=== PATIENT | male | born 2000 | race Caucasian/White ===

== ENCOUNTER 2023-06-01 09:06 | Emergency (ER) | payer OTHER, SELFPAY ==
[2023-06-01 09:12] VITALS: BP 132/72; PULSE 63; RESP 18; TEMP 36.1; O2SAT 97; BMI 39.9
--- NOTE | 2023-06-01 10:29 | ED_ITS ---
HPI - Eye Problem General Chief complaint: Eye Problems Stated complaint: R eye discharge, blurry vision Time Seen by Provider: 06/01/23 10:29 Source: patient and RN notes reviewed Mode of arrival: ambulatory Limitations: no limitations History of Present Illness HPI Narrative: This is a 22-year-old male, with a history of hypertension, who presents emergency department with complaints of right eye redness, drainage since this morning. Patient states that he woke up and noticed crusting to his eye, and feels as though there is something in his right eye. He endorses drainage from his eye. He denies getting anything into his right eye. No recent eye trauma. He does not wear contact lenses. He does report that he had metal in his right eye many years ago which was removed by an eye physician, no problems with his eyes since. He denies any fevers, chills, coughing, chest pain, shortness of breath, abdominal pain, nausea, vomiting or diarrhea. No other complaints or concerns at this time. MD chief complaint: eye redness Location: right eye Eye Symptoms: redness, foreign body sensation and discharge Mechanism: none If Pain, Quality: burning Related Data Previous Rx's ?Medication ?Instructions ?Recorded erythromycin 5 mg/gram (0.5 %) eye 0.5 inch ophthalmic (eye) QID #3.5 06/01/23 ointment grams Allergies Allergy/AdvReac Type Severity Reaction Status Date / Time No Known Allergies Allergy Verified 06/01/23 09:14 Review of Systems Review of Systems: Yes all other systems are reviewed and are negative Constitutional: Constitutional: Reports as per [facility] Past Medical History Attestation statement: The following information was validated with the patient. Social History Social History Advance Directives: No Advance Directives Information Provided: No Physical Exam Vital Signs: Vital Signs: Last Vital Signs Temp 0 F L 06/01/23 11:06 Pulse 0 L 06/01/23 11:06 Resp 0 L 06/01/23 11:06 BP 00/00 L 06/01/23 11:06 Pulse Ox 96 06/01/23 10:33 O2 Del Method Room Air 06/01/23 10:33 BMI result Body Mass Index 39.9 Const: General: cooperative, comfortable and no acute distress Orientation/consciousness: patient oriented x3 Limitations: no limitations HEENT: Head: Yes normal to inspection, Yes normocephalic and Yes atraumatic Ears: hearing grossly normal bilaterally General nose exam: Normal external nose present Face and sinus: Yes normal facial exam Mouth: Normal oral and palatal mucosa present, oropharynx normal and moist mucous membranes Throat: Yes posterior oropharynx normal Eyes: Other: Right eye conjunctiva is injected. Fluorescein stain achieved, no fluorescein uptake noted. No foreign body, ulcerations. Negative Nupur sign. General: appearance normal, both eyes and all related structures Eyelids: Yes eyelids normal Sclerae: sclerae normal Pupils: Equal, round and reactive pupils present EOM: EOMs intact bilaterally Neck: Neck: Yes normal visual inspection, Yes full ROM and Yes no lymphadenopathy Lymphatic: no lymphadenopathy noted Chest: Chest palpation & inspection: normal inspection of the chest Resp: Effort & Inspection: normal respiratory effort and able to speak in complete sentences Auscultation: clear to auscultation bilaterally, no crackles, no rales, no rhonchi and no wheezes Cardio: Rate: regular rate Rhythm: regular rhythm Heart sounds: S1 normal heart sound present and S2 normal heart sound present GI: Inspection: Yes normal to inspection Skin: General skin exam: no rashes or lesions noted Trauma: no lacerations or abrasions Wounds: no wounds Neuro: General: patient oriented x3 and moves all extremities Cranial nerves: Yes Equal, round and reactive pupils present Extrem: General: Yes normal to inspection Right upper extremity: normal to inspection Left upper extremity: normal to inspection Right lower extremity: normal to inspection Left lower extremity: normal to inspection Medications Administered Discontinued Medications Generic Name Dose Route Start Last Admin Trade Name Thania PRN Reason Stop Dose Admin Fluorescein Sodium 1 strip 06/01/23 10:36 06/01/23 11:06 Fluorescein Sodium Strip EYE-RIGHT 06/01/23 10:37 1 strip ONCE ONE Administration Tetracaine HCl 1 drop 06/01/23 10:36 06/01/23 11:06 Tetracaine Hcl/Pf 0.5% Oph Lesley 4 Ml Drops EYE-RIGHT 06/01/23 10:37 1 drop ONCE ONE Administration Medical Decision Making Medical Decision Making MDM Narrative: This is a 22-year-old male, with a history of hypertension, emergency department complaints of right eye redness, foreign body sensation, and drainage since this morning. On arrival vital signs within normal limits. He is nontoxic- appearing. He expresses intermittent changes in vision only with drainage. Denies any eye pain. PERRFERDINAND, EOMI. Fluorescein stain was performed, no fluorescein uptake suggest abrasion, foreign body, ulcerations. Negative Nupur sign. Symptoms consistent with viral/bacterial conjunctivitis. Will treat with erythromycin ointment. Patient given return precautions. He understands and agrees with plan. Visual acuity intact. Patient stable for discharge Differential Diagnosis Differential Diagnoses: The differential diagnosis associated with the presentation includes Conjunctivitis, iritis, foreign body, iritis, less likely periorbital/orbital cellulitis Admission/Observation Consideration of admission/observation: Escalation of care including admission/observation considered Escalation of care including admission/observation considered however given workup today not warranted at this time. Discharge Plan Discharge Clinical Impression: Conjunctivitis Patient Disposition: Home, Self-Care Instructions: Conjunctivitis (ED) Additional Instructions: You were seen in the emergency department due to right eye redness, drainage. Your eye exam today was normal however does appear to be irritated. He may have a bacterial or viral conjunctivitis. Please use antibiotic ointment 4 times a day for the next 7 days. Keep your hands clean as this may be contagious. If any new or worsening symptoms occur including but not limited to severe eye pain, severe changes in vision, please return. You may also follow-up with the release of information specialist, Dr. Bradley, as needed. Prescriptions: New erythromycin 5 mg/gram (0.5 %) ointment 0.5 inch ophthalmic (eye) QID Qty: 3.5 0RF Referrals: Bridger Bradley [Physician] - Stand Alone Forms: Work/School Release Interventions: ED Discharge Assessment Last Done: 06/01/23 11:06 Discharge Date/Time: 06/01/23 11:08 Print Language: Botswanan
[2023-06-01 10:33] VITALS: BP 134/69; PULSE 68; RESP 20; TEMP 36.6; O2SAT 96
[2023-06-01 11:06] VITALS: BP 00/00; PULSE 0; RESP 0; TEMP -17.7; TEMP 0
[2023-06-01] MEDS: Fluorescein Sodium STRIP 1 STRIP EYE-RIGHT (11:06)
[2023-06-01] MEDS: Tetracaine HCl/PF 0.5% Oph Sol 4 ML DROPS 1 DROP EYE-RIGHT (11:06)
== END 2023-06-01 11:08 | disposition home or self-care (01) ==
LOC: HO.ED 11:06
PROVIDERS: Emergency Provider Emergency Medicine
DX: H10.9 Unspecified conjunctivitis (principal); H53.8 Other visual disturbances
CPT/HCPCS: 99283

== ENCOUNTER 2024-05-03 08:16 | Emergency (ER) | payer OTHER, SELFPAY ==
--- NOTE | ~2024-05-03 | XR_ITS ---
EXAMINATION: XR CHEST CLINICAL INFORMATION: Productive cough COMPARISON: None available. TECHNIQUE: 2 views of the chest were obtained. FINDINGS: No consolidation, pleural effusion or pneumothorax. No hyperinflation. Cardiomediastinal silhouette is normal. Osseous structures are intact. XR/XR chest 2V IMPRESSION: No acute airspace disease. Normal chest x-ray. Electronically signed by: Ishmael Garrett MD 05/03/2024 08:52 AM EDT
[2024-05-03 08:25] VITALS: BP 133/77; PULSE 76; RESP 16; TEMP 36.7; O2SAT 97; BMI 33.9
--- NOTE | 2024-05-03 08:37 | ED_ITS ---
HPI - General Adult General Chief complaint: Upper Respiratory Symptoms Stated complaint: congestion multi issue chest pain Time Seen by Provider: 05/03/24 08:37 Source: patient Mode of arrival: ambulatory Limitations: no limitations History of Present Illness ED Provider: Garima Pineda PA-C HPI narrative: Patient is a 23 year old assigned male at with a history of yearly bronchitis presenting to the emergency department today with cough and congestion. Patient states that he woke up this morning with a cough and nasal congestion. Patient denies any dizziness, lightheadedness, abdominal pain, nausea, vomiting, fever, chills, blurry vision, double vision, loss of vision, chest pain, difficulty breathing, shortness of breath, back pain, night sweats, pain with urination, increased urinary frequency, increased urinary urgency, blood in his urine or stool, syncope or a near syncopal episode, recent trauma or falls, bowel incontinence, bladder incontinence, or any other complaints at this time. Relieving factors: none Exacerbating factors: none Associated symptoms: cough Treatments prior to arrival: none Related Data Previous Rx's ?Medication ?Instructions ?Recorded erythromycin 5 mg/gram (0.5 %) eye 0.5 inch ophthalmic (eye) QID #3.5 06/01/23 ointment grams guaifenesin 600 mg tablet, 600 mg PO BID #7 tabs 05/03/24 extended release 12 hr (Mucinex) Allergies Allergy/AdvReac Type Severity Reaction Status Date / Time No Known Allergies Allergy Verified 05/03/24 08:30 Review of Systems Constitutional: Constitutional: Reports no additional constitutional complaints, Denies chills, Denies fever(s) and Denies night sweats Eyes: Eyes: Reports no additional eye complaints, Denies blurry vision, Denies change in vision, Denies diplopia, Denies eye discharge, Denies loss of vision and Denies eye pain ENT: Denies dizziness and Reports nasal congestion Cardiovascular: Cardiovascular: Reports no additional cardiovascular complain ts, Denies chest pain, Denies lightheadedness, Denies Loss of Consciousness and Denies dyspnea Respiratory: Respiratory: Reports no additional respiratory complaints, Reports cough and Denies dyspnea Gastrointestinal: Gastrointestinal: Reports no additional gastrointestinal complaints, Denies abdominal pain, Denies melena, Denies hematochezia, Denies change in bowel habits and Denies change in stool character Genitourinary: Genitourinary: Reports no additional male genitourinary complaints, Denies hematuria, Denies oliguria, Denies difficulty urinating, Denies dysuria, Denies urinary frequency, Denies urinary hesitancy, Denies uri nary incontinence and Denies urinary urgency Musculoskeletal: Musculoskeletal: Reports no additional musculoskeletal complaints, Denies numbness and Denies tingling Neurologic: Denies dizziness, Denies loss of vision, Denies numbness and Denies tingling Psychiatric: Psychiatric: Reports no additional psychiatric complaints Endocrine: Endocrine: Reports no additional endocrine complaints Hematologic/Lymphatic: Hematologic/Lymphatic: Reports no additional hematologic/lymphatic complaints Allergic/Immunologic: Allergic/Immunologic: Reports no additional allergic/immunologic complaints PMFSH Past Medical History Attestation statement: The following information was validated with the patient. Source: old records reviewed and nursing notes reviewed Social History Social History Advance Directives: No Advance Directives Information Provided: Yes Physical Exam ED Vital Signs: Vital Signs - 24 hr 05/03/24 08:25 05/03/24 10:04 Temperature 98.1 F 98.1 F Pulse Rate 76 76 Respiratory Rate 16 16 Blood Pressure 133/77 133/77 Pulse Oximetry 97 97 Oxygen Delivery Method Room Air Room Air BMI result Body Mass Index 33.9 Const General: cooperative, no acute distress, alert and awake Nutritional Appearance: well nourished Orientation/consciousness: patient oriented x3 Limitations: no limitations HENMT Head: Yes normal to inspection and Yes atraumatic Ears: hearing grossly normal bilaterally and external ears normal General nose exam: Normal external nose present, no nasal discharge noted and no epistaxis Face and sinus: Yes normal facial exam, No abrasion and No laceration Mouth: Normal oral and palatal mucosa present, no drooling and no muffled voice Eyes General: appearance normal, both eyes and all related structures Periorbital: periorbital findings normal Eyelids: Yes eyelids normal Conjunctivae: conjunctivae normal Pupils: Equal, round and reactive pupils present EOM: EOMs intact bilaterally Neck Neck: Yes normal visual inspection, Yes full ROM and Yes no lymphadenopathy Chest Chest palpation & inspection: normal inspection of the chest Resp Effort & Inspection: normal respiratory effort and able to speak in complete sentences GI Inspection: Yes normal to inspection Neuro General: patient oriented x3, moves all extremities and CN's II-XI intact bilaterally Cranial nerves: Yes Equal, round and reactive pupils present Cognition (Neuro): normal cognition Extrem General: Yes normal to inspection, Yes full ROM and Yes capillary refill normal Psych Appearance: grossly normal Mental Status: mental status grossly normal Affect: normal affect Attitude: cooperative Thought process: Normal thought process present Thought content: Normal thought content present Insight: Good insight present (Psych) Medical Decision Making Medical Decision Making [facility] Narrative: Patient is a 23 year old assigned male at with a history of yearly bronchitis presenting to the emergency department today with cough and congestion. Patient's physical exam was unremarkable. Patient's chest x-ray showed no acute process. Patient's COVID-19, influenza, RSV, and strep tests were all negative. I explained my physical exam findings as well as all test results to the patient. I answered all questions asked by the patient. I stressed the importance of the patient taking his medication as directed (either prescribed or as the over the counter packaging recommends). I stressed the importance of the patient following up with his primary care provider. I stressed the importance of the patient returning to the emergency department immediately if his symptoms were to worsen or if he were to develop any dizziness, shortness of breath, difficulty breathing, chest pain, blurry vision, loss of vision, nausea, vomiting, abdominal pain, fever, chills, back pain, or any other complaints. Patient verbalized agreement and understanding with this treatment plan and discharge. Patient requested OTC Mucinex be prescribed. Script sent. Differential Diagnosis Differential Diagnoses: The differential diagnosis associated with the presentation includes Congestion Sinusitis Viral illness COVID-19 Influenza RSV Admission/Observation Consideration of admission/observation: Escalation of care including admission/observation considered Patient would have been admitted to the hospital had his work up had any findings where hospital admission was appropriate and his clinical presentation warranted hospital admission. Lab Data [facility] Lab Attestation statement: I reviewed the patient's lab results. My interpretation of these studies and their corresponding values is that they are grossly normal. Labs: Lab Results 05/03/24 Range/Units 08:35 Influenza Type A (PCR) NEGATIVE (Negative) Influenza Type B (PCR) NEGATIVE (Negative) RSV RNA Qual (PCR) NEGATIVE (Negative) SARS-CoV-2 RNA (RT-PCR) NEGATIVE (Negative) S. pyogenes GrpA ALDIA Negative (Negative) Independent Interpretation I performed an independent interpretation of an: Plain X-Ray Interpretation: My interpretation is in agreement with the radiologist's impression of this imaging study. EXAMINATION: XR CHEST CLINICAL INFORMATION: Productive cough COMPARISON: None available. TECHNIQUE: 2 views of the chest were obtained. FINDINGS: No consolidation, pleural effusion or pneumothorax. No hyperinflation. Cardiomediastinal silhouette is normal. Osseous structures are intact. XR/XR chest 2V IMPRESSION: No acute airspace disease. Normal chest x-ray. Electronically signed by: Ishmael Garrett MD 05/03/2024 08:52 AM EDT RP Dictated By: Ishmael Manning MD Signed By: Electronically signed by Ishmael Sequeira MD 05/03/24 0852 Radiology Impression Discussion of test interpretation with radiology: I have reviewed the radiologist's reading. Discharge Plan Discharge Clinical Impression: Viral illness Patient Disposition: Home, Self-Care Instructions: Viral Syndrome (ED) Additional Instructions: Your work up today was reassuring. Your chest x-ray showed no acute process and you were negative for COVID-19, influenza, RSV, and strep pharyngitis. Follow up with your primary care provider. Return to the emergency department immediately if your symptoms worsen or if you develop any numbness, tingling, dizziness, shortness of breath, difficulty breathing, chest pain, blurry vision, loss of vision, nausea, vomiting, abdominal pain, fever, chills, back pain, or any other complaints. Please see the information below about our Patient Portal. If you are not yet enrolled in the [facility] Patient Portal, you will receive an enrollment email invitation following your visit to any [facility] setting. You may also self-enroll in the Patient Portal by visiting our website: [email or web address] The following information is required to access the Patient Portal: - [place] [facility] [place] - Your personal home email address (must match what is in your electronic medical record, Registration staff can assist with this) - Name - Date of Capabilities of the Patient Portal: - Message some providers - View upcoming appointments - Access your health summary, medical history, and visit history - View current conditions and allergies - View procedure and lab results - View your medications, including guidelines, side effects, and precautions - Complete pre-appointment questionnaires requested by your provider - Ready summary reports of your office visits and procedures To access the Patient Portal Mobile [employer], follow these directions: - Search [employer] in the [employer] Store or [employer] Store - Download the [employer] - Search for [facility] - Enter your login/password Prescriptions: New guaifenesin [Mucinex] 600 mg tablet extended release 12hr 600 mg PO BID Qty: 7 0RF No Action erythromycin 5 mg/gram (0.5 %) ointment 0.5 inch ophthalmic (eye) QID Qty: 3.5 0RF Referrals: [facility] [place] [Provider Group] (Call to establish and follow up with a primary care provider. If you already have a primary care provider, please follow up with them.) [facility] [place] Care[place] [Provider Group] (Call to establish and follow up with a primary care provider. If you already have a primary care provider, please follow up with them.) [facility] [place] Care[place] [Provider Group] (Call to establish and follow up with a primary care provider. If you already have a primary care provider, please follow up with them.) [facility] [place] Care[place]berto [Provider Group] (Call to establish and follow up with a primary care provider. If you already have a primary care provider, please follow up with them.) Stand Alone Forms: Work/School Release Interventions: ED Discharge Assessment Last Done: 05/03/24 10:04 Discharge Date/Time: 05/03/24 10:13 Print Language: [place]
[2024-05-03 08:55] LABS: IDNOW Serial# 58CA691E; Strep A Nucleic Acid Negative (Negative)
[2024-05-03 09:24] LABS: Influenza A PCR NEGATIVE (Negative); Influenza B PCR NEGATIVE (Negative); Resp Syncy Virus RNA Qual PCR NEGATIVE (Negative); SARS COV2 PCR INHOUSE NEGATIVE (Negative)
[2024-05-03 10:04] VITALS: BP 133/77; PULSE 76; RESP 16; TEMP 36.7; O2SAT 97
== END 2024-05-03 10:13 | disposition home or self-care (01) ==
PROVIDERS: Emergency Provider Emergency Medicine
DX: B34.9 Viral infection, unspecified (principal); R05.9 Cough, unspecified; Z03.818 Encounter for observation for suspected exposure to other biological agents ruled out
CPT/HCPCS: 0241U; 71046; 87651; 99282; 99283

== ENCOUNTER → 2024-05-03 08:31 | Outpatient (BNV) | payer OTHER, SELFPAY | PROVIDERS: Visit Provider Radiology Diagnostic Radiology | DX: R05.9 Cough, unspecified (principal) | CPT/HCPCS: 71046 ==